=== PATIENT | male | born 1955 | race Caucasian/White ===

== ENCOUNTER 2020-11-16 09:13 | Day surgery (SDC) | payer MEDICARE, MEDICAID ==
[~2020-11-16 09:13] MED LIST: Lactated Ringers 1,000 ML IV SCH; Sodium Chloride 0.9% 10 ML Syringe FLUSH PRN
[2020-11-16] MEDS ORDERED: fentaNYL 100 MCG/2 ML SDV ONE (09:58)
[2020-11-16] MEDS ORDERED: Propofol 200 MG/20 ML SDV ONE ×3 (09:58→11:28)
[2020-11-16 12:24] VITALS: BP 115/75; PULSE 69
--- NOTE | 2020-11-16 14:22 | OR ---
PREOPERATIVE DIAGNOSES: 1. History of colon polyps. 2. Blood per rectum. POSTOPERATIVE DIAGNOSES: 1. History of colon polyps. 2. Blood per rectum. PROCEDURE PERFORMED: Colonoscopy with polypectomy. I removed polyps at 130, 110, 90, 50, and 20 cm. COMPLICATIONS: None. SPECIMENS: None. ESTIMATED BLOOD LOSS: None. PROCEDURE IN DETAIL: This was done in the endoscopy suite. Sedation was given per Anesthesia. He was placed in left lateral position. First, a rectal exam was done and it did reveal approximately 1.5 cm to 2 cm fibroepithelial polyp present just inside the anus. The scope was introduced slowly and ran through the rectum, sigmoid, descending, transverse, and ascending colon until the cecum was reached. Upon reaching the cecum, scope was slowly withdrawn looking at all mucosal surfaces on the way out. Polyps were found at 130, 110, 90, 50, and 20 cm. These were all removed with hot forceps and sent to Pathology. The scope was also retroflexed in the rectum. He had moderate internal hemorrhoids and again the fibroepithelial polyp. FINAL DIAGNOSES: Polyps at 130, 110, 90, 50, and 20 cm; moderate hemorrhoids; and a fibroepithelial polyp. BKD: 11/16/2020 11:47:47 MODL: 11/16/2020 13:10:53 /[id number]
== END 2020-11-16 13:30 | disposition home or self-care (01) ==
LOC: VM.SDS 09:13
PROVIDERS: ATTEND Surgery
DX: D12.6 Benign neoplasm of colon, unspecified (principal); K64.8 Other hemorrhoids; E66.9 Obesity, unspecified; G47.00 Insomnia, unspecified; E88.81 Metabolic syndrome and other insulin resistance; F17.210 Nicotine dependence, cigarettes, uncomplicated; Z01.812 Encounter for preprocedural laboratory examination; Z20.828 Contact with and (suspected) exposure to other viral communicable diseases; Z98.890 Other specified postprocedural states; Z79.899 Other long term (current) drug therapy; Z79.82 Long term (current) use of aspirin
CPT/HCPCS: 00811; 88305; J2704; J3010; J7120; U0002